=== PATIENT | male | born 1950 | race Caucasian/White ===

== ENCOUNTER 2024-04-16 11:36 | Emergency (ER) | payer OTHER ==
[~2024-04-16] VITALS: Ht 177.8 cm; Wt 72.0 kg
[2024-04-16 12:30] LABS: BASOPHILS % (AUTO) 0.7 % (0-1); EOSINOPHILS % (AUTO) 0.2 % (0-6); HEMATOCRIT 30.8 % (42.0-52.0); HEMOGLOBIN 10.1 g/dl (14.0-17.9); LYMPHOCYTES # (AUTO) 1.1 X10'3 (1.1-4.8); LYMPHOCYTES % (AUTO) 21.4 % (21-51); MEAN CORPUSCULAR HEMOGLOBIN 40.1 PG (27.0-31.0); MEAN CORPUSCULAR HGB CONC 32.8 g/dL (33.0-36.5); MEAN CORPUSCULAR VOLUME 122.3 FL (78-98); MEAN PLATELET VOLUME 6.8 FL (7.4-10.4); MONOCYTES # (AUTO) 0.6 X10'3 (0-0.9); MONOCYTES % (AUTO) 11.2 % (2-12); NEUTROPHILS # (AUTO) 3.5 X10'3 (1.8-7.7); NEUTROPHILS % (AUTO) 66.5 % (42-75); PLATELET COUNT 252 X10'3 (140-440); RED BLOOD COUNT 2.52 X10'6 (4.70-6.10); RED CELL DISTRIBUTION WIDTH 17.7 % (11.5-14.5); WHITE BLOOD COUNT 5.2 X10'3 (4.5-11.0)
[2024-04-16 12:40] LABS: ALBUMIN 2.4 G/DL (3.4-5.0); ANION GAP 15 (8-16); BLOOD UREA NITROGEN 6 MG/DL (7-18); BUN/CREATININE RATIO 7.3 (10.0-20.0); CALCIUM 8.8 MG/DL (8.5-10.1); CHLORIDE 106 MMOL/L (99-107); CREATININE 0.82 MG/DL (0.60-1.10); GLUCOSE 134 MG/DL (70-104); POTASSIUM 3.2 MMOL/L (3.5-5.1); SODIUM 144 MMOL/L (135-145); TOTAL CARBON DIOXIDE 23.2 MMOL/L (24-32); eCRCL 84 ML/MIN; eGFR > 90 ML/MIN
[2024-04-16 12:47] LABS: TOTAL CELLS COUNTED 100
[2024-04-16 12:48] LABS: ANISOCYTOSIS 1+; PLATELET ESTIMATE NORMAL; STOMATOCYTES 1+
[2024-04-16] MEDS: normal saline 1000ml 1,000 ML IV ONE (13:35)
[2024-04-16 13:36] VITALS: TEMP 97.8
[2024-04-16] MEDS ORDERED: CYAN1TAB41 PO (14:24)
[2024-04-16] MEDS: cyanocobalamin 1,000 mcg/ml inj IM ONE (14:51)
[2024-04-16] MEDS: loperamide 2mg capsule PO ONE ×2 (15:02→15:03)
[2024-04-16 15:06] VITALS: BP 111/63; PULSE 100; RESP 18; O2SAT 97
== END 2024-04-16 15:19 | disposition home or self-care (01) ==
LOC: ER 11:36
DX: D53.9 Nutritional anemia, unspecified (principal); G62.89 Other specified polyneuropathies; M25.551 Pain in right hip; F10.90 Alcohol use, unspecified, uncomplicated; Z59.00 Homelessness unspecified
CPT/HCPCS: 80048; 85007; 85025; 96360; 96372; 99283; J3420; J7030